=== PATIENT | male | born 1960 | race Caucasian/White ===

== ENCOUNTER 2017-07-09 21:38 | Emergency (ER) | payer OTHER ==
[~2017-07-09] VITALS: Ht 193 cm; Wt 136.1 kg
[~2017-07-09 21:38] MED LIST: ABILIFY MAINTE400 MG IM; ALMACONE LIQUI355 ML PO; AMBIEN 5 MG TABL5 M1 PO; AMLODIPINE BESY10 MG PO; BACTRIM DS TAB1 EACH PO; BENADRYL25 MG PO; BENZTROPINE ME0.5 MG PO; BENZTROPINE MES1 MG PO; BRINTELLIX20 MG PO; BUSPIRONE HCL10 MG PO; CELEBREX 200 M200 M1 PO; CHLORPROMAZINE25 M3 PO; CLONAZEPAM 1 MG1 M1 PO; CO Q-10100 MG PO; COLACE100 MG PO; CYCLOBENZAPRINE5 MG PO; CYMBALTA60 MG PO; DIPHENHYDRAMINE25 M4; DITROPAN XL15 MG PO; ENABLEX15 MG PO; FANAPT8 MG PO; FISH OIL 1,2001 EAC4 PO; FLOMAX0.4 MG PO; GLUCOPHAGE1000 MG PO; GLUCOPHAGE500 MG PO; GLUCOSAMINE HC500 MG PO; IBUPROFEN 800800 M1 PO; INOSITOL500 MG PO; KRILL OIL 1,001 EAC1 PO; LISINOPRIL10 MG PO; LITHIUM CARBON600 MG PO; LUNESTA3 MG PO; MAALOX525 MG/15 PO; MAXZIDE-25 MG1 EACH PO; MEDROL DOSPAK21 TA1 PO; MIRALAX255 GM PO; MULTIVITAMINS1 EAC7 PO; NAPROSYN500 MG PO; NORCO 5-325 TA1 EACH PO; NORVASC10 MG PO; NYSTATIN 1100000 U/M; PEPTO-BISMOL262 M1 PO; PERCOCET 10-321 EACH PO; PREDNISONE 20 M20 MG PO; PRINIVIL10 MG PO; Q-TUSSIN100 MG/5 M PO; ROBITUSSIN DM T10 ML PO; ROZEREM 8 MG TAB8 M1 PO; SEROQUEL 50 MG50 M1 PO; SEROQUEL 50 MG50 M2 PO; SEROQUEL 50 MG50 MG PO; SEROQUEL XR 30300 M1 PO; SEROQUEL200 MG PO; TRAMADOL 50 MG50 MG PO; WELLBUTRIN 100100 MG PO; XANAX 1 MG TABLE1 MG PO; XANAX1 MG PO; ZETIA10 MG PO; ZOFRAN ODT4 MG PO; ZOLOFT50 MG PO
[2017-07-09] MEDS ORDERED: SEROQUEL XR 30300 M1 PO (22:18)
[2017-07-09] MEDS ORDERED: NIACIN 100MG T100 M1 PO (22:18)
[2017-07-09] MEDS ORDERED: VITAMIN D2000 UNIT PO (22:19)
[2017-07-09] MEDS ORDERED: VITAMINC500 PO (22:19)
[2017-07-09] MEDS ORDERED: RESTORIL30 MG PO (22:20)
[2017-07-09 22:43] LABS: HEMATOCRIT 40.9 % (42.0-52.0); HEMOGLOBIN 14.2 gm/dL (14.0-18.0); MCH 28.5 pg (26.0-34.0); MCHC 34.6 g/dL (28.0-37.0); MCV 82.3 fL (80.0-100.0); PLATELET COUNT 279 thou/uL (150-400); RBC 4.98 mil/uL (4.50-6.00); RDW 13.5 % (10.5-14.5); WBC 10.3 thou/uL (4.0-11.0)
[2017-07-09 22:46] LABS: CALCIUM 9.3 mg/dL (8.5-10.1); CREATININE 1.3 mg/dL (0.7-1.3); POTASSIUM 3.6 mmol/L (3.5-5.1)
[2017-07-09 22:51] LABS: MANUAL DIFF YES
[2017-07-09 22:52] LABS: TOTAL BILIRUBIN 0.5 mg/dL (<0.1-1.0); TOTAL PROTEIN 7.1 g/dL (6.4-8.2)
[2017-07-09 23:24] LABS: ABSOLUTE NEUTROPHILS 7.6 thou/uL (1.4-8.2); TOTAL CELL COUNT 100
== END 2017-07-10 | disposition home or self-care (01) ==
LOC: ER 21:38
PROVIDERS: Emergency Medicine
DX: L72.3 Sebaceous cyst (principal); F31.9 Bipolar disorder, unspecified; F41.9 Anxiety disorder, unspecified; E11.9 Type 2 diabetes mellitus without complications; I10 Essential (primary) hypertension; Z98.890 Other specified postprocedural states

== ENCOUNTER 2017-10-02 16:20 | Inpatient (IN) | payer OTHER ==
[~2017-10-02] VITALS: Ht 193 cm; Wt 136.7 kg
--- NOTE | ~2017-10-02 | HC ---
[facility] [place] [address] CONSULTATION Name: MATT GONZALEZ Room #: 429-P [facility] IN M.R.#: [id number] Admission: 10/02/17 Attend Phys: Marcus James MD Discharge: 10/03/17 Date of : 60 Report #: [id number] THIS REPORT FOR: //name// CC: Devante James DATE OF SERVICE: 10/03/2017 HISTORY OF PRESENT ILLNESS: This is a 57-year-old male patient who was evaluated by me for any neurological etiology for the patient's leg weakness. The patient gives a history that he has pain in the back, which radiates down to the left lower extremity for several years. It has become worse recently and since last Sunday, he noticed that he is having weakness in the both lower extremities. He had some falls, but looks like the weakness started spontaneously. Weakness is more pronounced on the left side as compared to the right side. He described the weakness as severe and he has difficulty going to the bathroom because of ambulation problem. He had an episode of similar symptoms in the past relation to taking some medications. There is nothing which makes this weakness better or worse. REVIEW OF SYSTEMS: Positive for back pain in the past which is several years' duration. His CT scan has indicated a ureter stone. He indicates that he is on disability because of bipolar disorder. Other history is summarized in his other notes and that was reviewed. He does have a history of diabetes, but looks like it is well controlled with metformin and . He does have a history of hypertension, but further history in that regard is not available. He is on multiple psychiatric medications. He is not complaining of any eye, ENT, cardiac, respiratory, constitutional, dermatological, hematological, throat symptoms, which are new and associated with present symptomatology. He has other symptoms as described above in rest of his 14-point review of system. PAST MEDICAL HISTORY: Positive for the back pain, which radiates down to the left lower extremity. FAMILY HISTORY: Negative for early age stroke. SOCIAL HISTORY: He indicates he does not smoke or drink any alcohol. PHYSICAL EXAMINATION: The patient's examinations indicate he is alert. He is responsive. He is oriented. He can follow simple commands. His speech, concentration, fund of knowledge and memory is at his baseline. Cranial nerve examination 2-12 was carried out and does not appear to be showing any definite abnormalities. I could not look at the fundus even if his pupil is dilated to some extent. Neuromuscular examinations indicate that he is complaining of weakness in both lower extremities. It is worse on the left side as compared to the right side. He indicates that he does not appreciate the position sense on [facility] [address] [place] [address] CONSULTATION Name: MATT GONZALEZ Room #: 429-P [facility] IN M.R.#: [id number] Admission: 10/02/17 Attend Phys: Marcus James MD Discharge: 10/03/17 Date of : 60 Report #: [id number] the left lower extremity well. His reflexes are well elicited in the lower extremities, but I cannot tell about plantars. His tone looks symmetrical and he has no cerebellar sign. There is no carotid bruit. There is no thyroid mass. His cardiac examinations indicate unremarkable heart sounds and there is no atrial fibrillation. No respiratory difficulty or rhonchi present on each side. His pulses are palpable. He has no edema, cyanosis, or jaundice. His blood pressure is 134/74, respiration is 20, pulse is 75, and temperature is 98.3. LABORATORY DATA: His white count is normal at 10.2 and his glucose is only mildly elevated. He did have a CT scan of the head during admission and that was unremarkable. IMPRESSION: The most likely etiology for the patient's symptoms is in the spine. He has reflexes present in the lower extremities and therefore if a spine lesion is seen is more likely to be seen higher up and therefore, I added an MRI of the thoracic spine to his lumbar spine. 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 He also has a psychiatric history, which does contaminate the patient's symptoms and it becomes difficult to establish the diagnosis in this patient. We will do some basic workup for collagen vascular workup. RECOMMENDATIONS: 1. We will go ahead and do MRI of the thoracic spine in addition to lumbar spine. 2. If that is negative, we may consider MRI of the cervical spine and the brain. 3. I will order some more blood workup in this patient. 4. I told him the limitation of our hospital. No neurosurgeon comes here and no spine surgeon comes here and I do not do any spine. Furthermore, we do not have EMG machine to do the EMG. I discussed his options in that regard and he understands that and the plan is to go ahead and do these MRIs and see if any obvious pathology is there. We will also check the blood workup and then readdress the situation what to do in this patient. Thank you very much for this referral and if you have any questions, please feel free to contact me. <ELECTRONICALLY SIGNED> By: Ion Curtis MD 10/05/17 [id number] MD erik Dooley
[~2017-10-02 16:20] MED LIST changes: +NIACIN 100MG T100 M1 PO; +RESTORIL30 MG PO; +VITAMIN D2000 UNIT PO; +VITAMINC500 PO
[2017-10-02 16:21] VITALS: BP 172/103
[2017-10-02 16:58] LABS: ABSOLUTE NEUTROPHILS 5.9 thou/uL (1.4-8.2); BASOPHILS 1.2 % (0.0-2.0); EOSINOPHILS 3.6 % (0.0-3.0); HEMATOCRIT 39.7 % (42.0-52.0); HEMOGLOBIN 13.8 gm/dL (14.0-18.0); LYMPHOCYTES 26.4 % (24.0-44.0); MCH 28.3 pg (26.0-34.0); MCHC 34.7 g/dL (28.0-37.0); MCV 81.6 fL (80.0-100.0); MONOCYTES 10.8 % (1.0-8.0); PLATELET COUNT 266 thou/uL (150-400); RBC 4.87 mil/uL (4.50-6.00); RDW 13.8 % (10.5-14.5); WBC 10.2 thou/uL (4.0-11.0)
[2017-10-02 17:04] LABS: CREATININE 1.6 mg/dL (0.7-1.3); POTASSIUM 3.8 mmol/L (3.5-5.1)
[2017-10-02 17:11] LABS: TOTAL PROTEIN 6.6 g/dL (6.4-8.2)
[2017-10-02] MEDS ORDERED: FLAX SEED OIL1000 MG PO (17:30)
[2017-10-02 19:16] VITALS: BP 133/78
[2017-10-02 19:18] VITALS: BP 129/81
[2017-10-02 20:00] VITALS: BP 134/74
[2017-10-03 05:01] VITALS: BP 119/68
[2017-10-03 05:37] LABS: HEMATOCRIT 38.5 % (42.0-52.0); HEMOGLOBIN 13.1 gm/dL (14.0-18.0); MCH 28.2 pg (26.0-34.0); MCHC 34.1 g/dL (28.0-37.0); MCV 82.6 fL (80.0-100.0); RBC 4.65 mil/uL (4.50-6.00); RDW 13.9 % (10.5-14.5); WBC 10.2 thou/uL (4.0-11.0)
[2017-10-03 05:50] LABS: CALCIUM 8.4 mg/dL (8.5-10.1); CREATININE 1.4 mg/dL (0.7-1.3); POTASSIUM 3.9 mmol/L (3.5-5.1)
[2017-10-03 06:12] LABS: URINE BILIRUBIN NEGATIVE (Negative); URINE BLOOD NEGATIVE (Negative); URINE CLARITY CLEAR; URINE COLOR YELLOW; URINE GLUCOSE-RANDOM* NEGATIVE (Negative); URINE KETONES NEGATIVE (Negative); URINE LEUKOCYTES-REFLEX NEGATIVE (Negative); URINE NITRITE-REFLEX NEGATIVE (Negative); URINE PROTEIN (DIPSTICK) NEGATIVE (Negative); URINE SPECIFIC GRAVITY >= 1.030 (1.005-1.035); URINE UROBILINOGEN 0.2 E.U./dl (0.2-1.0)
[2017-10-03 07:25] VITALS: BP 111/72
[2017-10-03 11:01] LABS: TSH 1.806 uIU/mL (0.358-3.740)
[2017-10-03 14:50] VITALS: BP 122/83
[2017-10-03] MEDS ORDERED: FLOMAX0.4 MG PO (16:15)
== END 2017-10-03 18:09 | disposition short-term general hospital (02) | DRG 551 ==
LOC: ER 16:20 → 4E 18:46 → EROBS 18:46 → 4E 19:46
PROVIDERS: Nurse Practitioner; Nurse Practitioner Acute Care; Psychiatry & Neurology Neuromuscular Medicine
DX: M54.16 Radiculopathy, lumbar region (principal); N17.0 Acute kidney failure with tubular necrosis; N13.2 Hydronephrosis with renal and ureteral calculous obstruction; R29.6 Repeated falls; F32.9 Major depressive disorder, single episode, unspecified; F31.9 Bipolar disorder, unspecified; F41.9 Anxiety disorder, unspecified; I10 Essential (primary) hypertension; G47.33 Obstructive sleep apnea (adult) (pediatric); E11.40 Type 2 diabetes mellitus with diabetic neuropathy, unspecified; M19.90 Unspecified osteoarthritis, unspecified site; M48.061 Spinal stenosis, lumbar region without neurogenic claudication; M47.896 Other spondylosis, lumbar region; Z99.81 Dependence on supplemental oxygen; Z79.899 Other long term (current) drug therapy; Z79.84 Long term (current) use of oral hypoglycemic drugs
CPT/HCPCS: 10084

== ENCOUNTER 2017-12-30 17:12 | Emergency (ER) | payer OTHER ==
[~2017-12-30] VITALS: Ht 182.9 cm; Wt 136.1 kg
[~2017-12-30 17:12] MED LIST changes: +FLAX SEED OIL1000 MG PO
[2017-12-30 18:07] LABS: HEMOGLOBIN 14.6 gm/dL (14.0-18.0); MCH 28.1 pg (26.0-34.0); MCHC 34.7 g/dL (28.0-37.0); MCV 81.1 fL (80.0-100.0); PLATELET COUNT 125 thou/uL (150-400); RBC 5.17 mil/uL (4.50-6.00); RDW 13.7 % (10.5-14.5); WBC 3.7 thou/uL (4.0-11.0)
[2017-12-30 18:08] LABS: URINE BILIRUBIN NEGATIVE (Negative); URINE BLOOD 1+ (Negative); URINE CLARITY CLEAR; URINE COLOR YELLOW; URINE GLUCOSE-RANDOM* NEGATIVE (Negative); URINE KETONES NEGATIVE (Negative); URINE LEUKOCYTES-REFLEX NEGATIVE (Negative); URINE NITRITE-REFLEX NEGATIVE (Negative); URINE PROTEIN (DIPSTICK) 1+ (Negative); URINE SPECIFIC GRAVITY >= 1.030 (1.005-1.035); URINE UROBILINOGEN 0.2 E.U./dl (0.2-1.0)
[2017-12-30 18:17] LABS: CALCIUM 9.3 mg/dL (8.5-10.1); POTASSIUM 3.5 mmol/L (3.5-5.1)
[2017-12-30 18:20] LABS: CALCIUM OXALATE >10 Many /LPF (None Seen); CASTS None Seen /LPF (None Seen); CRYSTALS None Seen /LPF (None Seen); MUCUS 4-6 Moderate strn/LPF (None Seen); SQUAMOUS 0-3 Few /LPF (0-3)
[2017-12-30 18:21] LABS: BACTERIA-REFLEX None Seen /HPF (None Seen); URINE RBC 0-2 Rare /HPF (0-2); URINE WBC-REFLEX None Seen /HPF (0-5)
[2017-12-30 18:36] LABS: ABSOLUTE NEUTROPHILS 2.9 thou/uL (1.4-8.2)
== END 2017-12-30 19:15 | disposition home or self-care (01) ==
LOC: ER 17:12
PROVIDERS: Physician Assistant
DX: H83.2X9 Labyrinthine dysfunction, unspecified ear (principal); B34.9 Viral infection, unspecified; M79.1 Myalgia; F32.9 Major depressive disorder, single episode, unspecified; F41.9 Anxiety disorder, unspecified; E11.9 Type 2 diabetes mellitus without complications; I10 Essential (primary) hypertension; G47.33 Obstructive sleep apnea (adult) (pediatric); Z90.89 Acquired absence of other organs; Z90.49 Acquired absence of other specified parts of digestive tract

== ENCOUNTER 2017-12-31 23:09 | Emergency (ER) | payer OTHER ==
[~2017-12-31] VITALS: Ht 193 cm; Wt 136.1 kg
[2017-12-31 23:33] LABS: URINE BILIRUBIN NEGATIVE (Negative); URINE BLOOD NEGATIVE (Negative); URINE CLARITY CLEAR; URINE COLOR YELLOW; URINE GLUCOSE-RANDOM* NEGATIVE (Negative); URINE KETONES TRACE (Negative); URINE LEUKOCYTES-REFLEX NEGATIVE (Negative); URINE NITRITE-REFLEX NEGATIVE (Negative); URINE PROTEIN (DIPSTICK) 1+ (Negative); URINE SPECIFIC GRAVITY >= 1.030 (1.005-1.035)
[2017-12-31 23:41] LABS: HYALINE CASTS 0-3 Few /LPF (None Seen); SQUAMOUS 0-3 Few /LPF (0-3)
[2017-12-31 23:42] LABS: MUCUS 0-3 Light strn/LPF (None Seen)
[2017-12-31 23:44] LABS: URINE RBC 0-2 Rare /HPF (0-2); URINE WBC-REFLEX 0-5 Rare /HPF (0-5)
[2017-12-31 23:45] LABS: BACTERIA-REFLEX 1-9 Few /HPF (None Seen); CALCIUM OXALATE 4-10 Moderate /LPF (None Seen)
[2017-12-31 23:58] LABS: HEMATOCRIT 39.8 % (42.0-52.0); HEMOGLOBIN 13.6 gm/dL (14.0-18.0); MCHC 34.1 g/dL (28.0-37.0); PLATELET COUNT 127 thou/uL (150-400); RBC 4.85 mil/uL (4.50-6.00); RDW 14.1 % (10.5-14.5)
[2018-01-01 00:05] LABS: CALCIUM 9.7 mg/dL (8.5-10.1); CREATININE 1.2 mg/dL (0.7-1.3); POTASSIUM 3.7 mmol/L (3.5-5.1)
[2018-01-01 00:22] LABS: ABSOLUTE NEUTROPHILS 4.4 thou/uL (1.4-8.2); ATYPICAL LYMPHS 1 %
[2018-01-01] MEDS ORDERED: ULTRAM 50MG TAB50 MG PO (01:33)
[2018-01-01] MEDS ORDERED: NORFLEX100 MG PO (01:33)
== END 2018-01-01 02:13 | disposition home or self-care (01) ==
LOC: ER 23:09
PROVIDERS: Emergency Medicine
DX: M54.5 Low back pain (principal); F31.9 Bipolar disorder, unspecified; I10 Essential (primary) hypertension; E11.9 Type 2 diabetes mellitus without complications; Z90.49 Acquired absence of other specified parts of digestive tract

== ENCOUNTER 2019-07-05 14:13 | Emergency (ER) | payer OTHER ==
[~2019-07-05] VITALS: Ht 190.5 cm; Wt 145.2 kg
[~2019-07-05 14:13] MED LIST changes: +NORFLEX100 MG PO; +ULTRAM 50MG TAB50 MG PO
[2019-07-05 15:27] LABS: ABSOLUTE NEUTROPHILS 5.4 thou/uL (1.4-8.2); BASOPHILS 1.1 % (0.0-2.0); EOSINOPHILS 1.4 % (0.0-3.0); HEMATOCRIT 36.7 % (42.0-52.0); LYMPHOCYTES 18.8 % (24.0-44.0); MCH 25.8 pg (26.0-34.0); MCHC 32.7 g/dL (28.0-37.0); MONOCYTES 8.8 % (1.0-8.0); PLATELET COUNT 255 thou/uL (150-400); POLYS 69.9 % (36.0-66.0); RBC 4.65 mil/uL (4.50-6.00); RDW 17.7 % (10.5-14.5); WBC 7.8 thou/uL (4.0-11.0)
[2019-07-05 15:35] LABS: CALCIUM 9.2 mg/dL (8.5-10.1); CREATININE 1.1 mg/dL (0.7-1.3); POTASSIUM 3.8 mmol/L (3.5-5.1)
[2019-07-05 15:41] LABS: TOTAL BILIRUBIN 0.4 mg/dL (<0.1-1.0); TOTAL PROTEIN 6.9 g/dL (6.4-8.2)
[2019-07-05 15:51] LABS: URINE BILIRUBIN NEGATIVE (Negative); URINE BLOOD NEGATIVE (Negative); URINE CLARITY CLEAR; URINE COLOR YELLOW; URINE GLUCOSE-RANDOM* NEGATIVE (Negative); URINE KETONES NEGATIVE (Negative); URINE LEUKOCYTES-REFLEX NEGATIVE (Negative); URINE NITRITE-REFLEX NEGATIVE (Negative); URINE PROTEIN (DIPSTICK) NEGATIVE (Negative); URINE UROBILINOGEN 0.2 E.U./dl (0.2-1.0)
[2019-07-05 15:57] LABS: AMP/METHAMP Negative (Negative); BARBITURATES Negative (Negative); BENZODIAZEPINES POSITIVE (Negative); COCAINE Negative (Negative); METHADONE Negative (Negative); OPIATES Negative (Negative); PCP Negative (Negative)
[2019-07-05 19:30] VITALS: BP 139/81
== END 2019-07-05 19:32 | disposition home or self-care (01) ==
LOC: ER 14:13
PROVIDERS: Nurse Practitioner Family
DX: R45.851 Suicidal ideations (principal); I10 Essential (primary) hypertension; E11.9 Type 2 diabetes mellitus without complications; F32.9 Major depressive disorder, single episode, unspecified; F41.9 Anxiety disorder, unspecified; G47.30 Sleep apnea, unspecified; Z90.89 Acquired absence of other organs; Z90.49 Acquired absence of other specified parts of digestive tract

== ENCOUNTER 2019-08-25 10:15 | Emergency (ER) | payer OTHER ==
[~2019-08-25] VITALS: Ht 190.5 cm; Wt 145.2 kg
[2019-08-25 11:15] LABS: ABSOLUTE NEUTROPHILS 5.4 thou/uL (1.4-8.2); BASOPHILS 1.2 % (0.0-2.0); EOSINOPHILS 3.5 % (0.0-3.0); HEMOGLOBIN 12.6 gm/dL (14.0-18.0); LYMPHOCYTES 20.9 % (24.0-44.0); MCH 25.2 pg (26.0-34.0); MCHC 32.3 g/dL (28.0-37.0); MCV 78.2 fL (80.0-100.0); MONOCYTES 7.4 % (1.0-8.0); PLATELET COUNT 284 thou/uL (150-400); RBC 4.98 mil/uL (4.50-6.00); RDW 16.2 % (10.5-14.5)
[2019-08-25 11:19] LABS: ANION GAP 12 mmol/L (7-16); BUN 15 mg/dL (7-18); CHLORIDE 103 mmol/L (98-107); CO2 21 mmol/L (21-32); CREATININE 1.2 mg/dL (0.7-1.3); GLUCOSE 185 mg/dL (74-106); POTASSIUM 4.1 mmol/L (3.5-5.1); SODIUM 136 mmol/L (136-145)
[2019-08-25 11:29] LABS: ALBUMIN 3.6 g/dL (3.4-5.0); SGOT 16 U/L (15-37); SGPT 25 U/L (30-65); TOTAL BILIRUBIN 0.3 mg/dL (<0.1-1.0); TOTAL PROTEIN 6.7 g/dL (6.4-8.2); TROPONIN-I <0.06 ng/mL (<0.06)
[2019-08-25] MEDS ORDERED: LIDOCAINE PAIN1 EACH TRANSDERM (12:52)
[2019-08-25] MEDS ORDERED: NORCO 5-325 TA1 EAC1 PO (12:52)
[2019-08-25 13:16] VITALS: BP 119/48
--- NOTE | 2019-08-25 16:46 | EKG ---
[address] [address] ELECTROCARDIOGRAM REPORT Name: HARRISON GONZALEZDERREK VYAS [id number] Admission: 08/25/19 Attend Phys: Discharge: 08/25/19 Date of : 60 Report #: [id number] THIS REPORT FOR: //name// [facility] ED Test Date: 2019-08-25 Test Time: 10:23:35 Pat Name: MATT GONZALEZ Department: Room: Gender: M [employer]: [place] : 1960 Requested By: Jennifer Mcgee Order Number: [id number] MD: Sukhdeep Vincent Measurements Intervals [place] Rate: 85 P: 28 TN: 173 QRS: -17 QRSD: 102 T: 30 QT: 367 QTc: 437 Interpretive Statements Sinus rhythm Abnormal R-wave progression, early transition Compared to ECG 08/28/2016 20:02:15 Sinus tachycardia no longer present Ventricular premature complex(es) no longer present T-wave abnormality no longer present Electronically Signed On 08-25-2019 16:46:46 MANAGER COPY by Sukhdeep Vincent [email or web address] <ELECTRONICALLY SIGNED> By: Sukhdeep Vincent MD, FACC 08/25/19 1646 1023 1023 Sukhdeep Vincent MD, FAC /EPI
== END 2019-08-25 13:17 | disposition home or self-care (01) ==
LOC: ER 10:15
PROVIDERS: Physician Assistant
DX: M54.12 Radiculopathy, cervical region (principal); M25.512 Pain in left shoulder; I10 Essential (primary) hypertension; E11.9 Type 2 diabetes mellitus without complications; F32.9 Major depressive disorder, single episode, unspecified; Z90.49 Acquired absence of other specified parts of digestive tract; Z90.89 Acquired absence of other organs

== ENCOUNTER 2020-04-20 10:31 | Emergency (ER) | payer OTHER ==
[~2020-04-20] VITALS: Ht 190.5 cm; Wt 136.1 kg
[~2020-04-20 10:31] MED LIST changes: +LIDOCAINE PAIN1 EACH TRANSDERM; +NORCO 5-325 TA1 EAC1 PO
[2020-04-20] MEDS ORDERED: VITAMIN K100 MCG PO (10:51)
[2020-04-20] MEDS ORDERED: B COMPLEX1 EACH PO (10:52)
[2020-04-20 11:51] LABS: ABSOLUTE NEUTROPHILS 12.9 thou/uL (1.4-8.2)
[2020-04-20 11:54] LABS: BASOPHILS 0.4 % (0.0-2.0); EOSINOPHILS 0.4 % (0.0-3.0); HEMOGLOBIN 13.2 gm/dL (14.0-18.0); LYMPHOCYTES 7.5 % (24.0-44.0); MCH 25.7 pg (26.0-34.0); MCHC 33.8 g/dL (28.0-37.0); MCV 76.1 fL (80.0-100.0); MONOCYTES 11.2 % (1.0-8.0); PLATELET COUNT 296 thou/uL (150-400); POLYS 80.5 % (36.0-66.0); RBC 5.12 mil/uL (4.50-6.00); RDW 15.5 % (10.5-14.5)
[2020-04-20 11:58] LABS: CALCIUM 9.2 mg/dL (8.5-10.1); CREATININE 1.1 mg/dL (0.7-1.3); MAGNESIUM 1.8 mg/dL (1.8-2.4)
[2020-04-20 12:40] VITALS: BP 135/71
== END 2020-04-20 12:41 | disposition home or self-care (01) ==
LOC: ER 10:31
PROVIDERS: Emergency Medicine
DX: J02.9 Acute pharyngitis, unspecified (principal); R50.9 Fever, unspecified; I10 Essential (primary) hypertension; E11.9 Type 2 diabetes mellitus without complications; Z90.49 Acquired absence of other specified parts of digestive tract; Z79.899 Other long term (current) drug therapy; Z20.828 Contact with and (suspected) exposure to other viral communicable diseases